=== PATIENT | male | born 1990 | race Two or more races ===

== ENCOUNTER 2023-06-30 08:31 | Emergency (ER) | payer OTHER ==
[2023-06-30 08:38] VITALS: BP 129/79; PULSE 88; RESP 18; TEMP 98.7; BMI 26.5
[2023-06-30] MEDS ORDERED: ACETAMINOPHEN 500 MG TABLET (FP) PO ONE (09:19)
[2023-06-30] MEDS ORDERED: ACETAMINOPHEN 500 MG TABLET (FP) ONE (09:23)
[2023-06-30] MEDS ORDERED: PSEUDOEPHEDRINE HCL 30 MG TABLET PO ONE (09:25)
== END 2023-06-30 09:42 | disposition home or self-care (01) ==
LOC: JER 08:31
DX: H92.02 Otalgia, left ear (principal); H66.92 Otitis media, unspecified, left ear; H60.92 Unspecified otitis externa, left ear
CPT/HCPCS: 99283-25

== ENCOUNTER 2023-07-02 19:21 | Emergency (ER) | payer OTHER ==
[2023-07-02 19:30] VITALS: BP 130/78; PULSE 66; RESP 18; TEMP 98.4; BMI 26.5
[2023-07-02] MEDS ORDERED: DEXAMETHASONE SOD PHOSPHATE 10 MG/1 ML VIAL IM ONE (20:23)
[2023-07-02] MEDS ORDERED: KETOROLAC TROMETHAMINE 30 MG/1 ML VIAL IM ONE (20:23)
[2023-07-02] MEDS ORDERED: KETOROLAC TROMETHAMINE 30 MG/1 ML VIAL ONE (20:32)
[2023-07-02] MEDS ORDERED: DEXAMETHASONE SOD PHOSPHATE 10 MG/1 ML VIAL ONE (20:32)
== END 2023-07-02 21:26 | disposition home or self-care (01) ==
LOC: JER 19:21
PROC: 3E023GC Introduction of Other Therapeutic Substance into Muscle, Percutaneous Approach (ICD-10-PCS; principal; 2023-07-02)
PROC: 3E0233Z Introduction of Anti-inflammatory into Muscle, Percutaneous Approach (ICD-10-PCS; 2023-07-02)
DX: H66.92 Otitis media, unspecified, left ear (principal); H92.02 Otalgia, left ear
CPT/HCPCS: 70450-TC; 70486-TC; 99284-25; J1100